=== PATIENT | female | born 1990 | race Caucasian/White ===

== ENCOUNTER 2016-05-04 11:08 | Inpatient (IN) | payer OTHER ==
--- NOTE | ~2016-05-04 | DS ---
Unit #: [id number] #: [id number] Patient: ORI BARNETT [id number] [facility] [address] [place] [address] [id number] I MR#: [id number] NAME: ORI BARNETT. ROOM: P203 Age: 25 Sex: F Admission Date: 05/04/2016 : 1990 Discharge Date: 05/06/2016 Attending Physician: Arslan Saldana M.D. Primary Care Physician: Generic Doctor Not In System DISCHARGE SUMMARY REASON FOR ADMISSION The patient is a 25-year-old white female, admitted to the [address] [place] [address] unit with recurrent abuse of methamphetamine and opioids. HOSPITAL COURSE The patient was admitted to the [facility] and placed on a COWS protocol. She exhibited little in the way of signs or symptoms of withdrawal. On 05/06/2015, the patient requested that this physician "put me back on my Adderall." It was explained to the patient that this would not be a crowder thing to do given her extensive substance abuse history. At this the patient demanded discharge, but having voiced suicidal ideation at the time of admission, she was observed for another 24 hours. On 05/06/2016, the patient was pleasant and cooperative and denied suicidal or homicidal ideation. Discharge was ordered. FINAL DIAGNOSES Methamphetamine use disorder, opioid use disorder, antisocial traits versus disorder. DISPOSITION ON DISCHARGE No psychotropic or other medications were ordered at the time of discharge. FOLLOWUP Followup will take place through the auspices of community mental health resources. PROGNOSIS The patient's prognosis is considered guarded. Dictated by... Arslan Saldana M.D. CB/rito TD: 05/07/2016 01:49 JOB #: [id number] Unit #: [id number] #: [id number] Patient: ORI BARNETT DISCHARGE SUMMARY X Arslan Saldana MD X DISCHARGE SUMMARY
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
--- NOTE | ~2016-05-04 | PN ---
Unit #: [id number] #: [id number] Patient: ORI BARNETT [id number] [facility] [address] [place] [address] [id number] I MR#: [id number] NAME: ORI BARNETT. ROOM: P203 Age: 25 Sex: F Admission Date: 05/04/2016 : 1990 Attending Physician: Arslan Saldana M.D. Admitting Physician: Arslan Saldana M.D. Primary Care Physician: Ana Doctor Not In System [facility] PROGRESS NOTES DATE 05/05/2016 DISCUSSION The patient is complaining of some symptoms of opioid withdrawal. We will go ahead and initiate the opioid detox protocol as the patient does admit now that she was abusing opiates as well as methamphetamine outside the hospital. The patient today requests that this physician restart her Adderall which she states she had taken to the age of 20 before I "started self-medicating." I have calmly explained to the patient that initiation of Adderall in a patient with her extensive substance abuse history is not going to occur at least under the care of this physician. The patient expresses anger related to this and demands discharge, but given her suicidal threats at the time of admission, we will continue to observe and initiate a 72-hour hold if necessary. Dictated by... Arslan Saldana M.D. CB/billie TD: 05/05/2016 14:24 JOB #: [id number] [facility] PROGRESS NOTES X Arslan Saldana MD X PROGRESS NOTE
--- NOTE | ~2016-05-04 | HP ---
Unit #: [id number] #: [id number] Patient: ZOHRA BARNETT [id number] [place] [address] [id number] I MR#: [id number] NAME: ZOHRA BARNETT. ROOM: P203 Age: 25 Sex: F Admission Date: 05/04/2016 : 1990 Attending Physician: Arslan Saldana M.D. Admitting Physician: Arslan Saldana M.D. Primary Care Physician: Generic Doctor Not In System HISTORY AND PHYSICAL HISTORY OF PRESENT ILLNESS Zohra is a 25 year old admitted to [address] [place] [address] because of her continued polysubstance abuse. PAST MEDICAL HISTORY 1. Long history of illicit substance abuse to include IV heroin and crack cocaine. 2. Hepatitis C. 3. Obesity. PAST SURGICAL HISTORY x1. ALLERGIES Penicillin, Ceclor. SOCIAL HISTORY Smokes one pack per day. Denies alcohol. Admits to long history of illicit substance abuse to include IV heroin. FAMILY HISTORY Medically noncontributory. REVIEW OF SYSTEMS CONSTITUTIONAL: No fever or chills. HEENT: Denies any sore throat, ear pain or runny nose. CARDIOVASCULAR: Denies chest pain, irregular heart rhythm or palpitations. CHEST: Denies shortness of breath or cough. No hemoptysis. GASTROINTESTINAL: Denies nausea, vomiting, diarrhea or chronic constipation. ENDOCRINE: Denies history of increased thirst or urination. No recent significant weight loss or gain. GENITOURINARY: Denies dysuria, frequency, or hematuria. SKIN: Denies any rashes. HEMATOLOGIC: Denies history of increased bleeding or bruising. MUSCULOSKELETAL: Denies any hot, swollen joints. No generalized muscle pain. NEUROLOGIC: Denies problems with vision or speech. No frequent, severe headaches. No numbness, tingling or weakness in any extremities. Denies loss of bladder or bowel control. CURRENT MEDICATIONS 1. Milk of magnesia p.r.n. Unit #: [id number] #: [id number] Patient: ZOHRA BARNETT 2. Maalox p.r.n. 3. Tylenol p.r.n. PHYSICAL EXAMINATION GENERAL: Alert, well nourished. No apparent distress. VITAL SIGNS: Blood pressure 130/92, heart rate 96, respirations 16, and temperature 98.6. WEIGHT: 172. HEIGHT: 5 feet 8 inches. SKIN: Warm and dry without rash or lesion. HEENT: Normocephalic. TMs not viewed. Oral and nasal passages clear. Conjunctivae clear. PERRLA. EOMs intact. NECK: Supple without lymphadenopathy or thyromegaly. HEART: Regular rate and rhythm without murmur. LUNGS: Clear. ABDOMEN: Soft, nontender. : Not done. EXTREMITIES: No evidence of cyanosis, clubbing or edema. Moves all without focal deficit. NEUROLOGICAL: Grossly within normal limits. Cranial Nerves: II: Visual dixon are intact. III, IV AND : Extraocular movements are intact. Pupils are equal, round and reactive to light. V: Facial sensation is grossly normal. VII: Facial movements and expression are normal. VIII: Auditory acuity grossly intact. IX, X: Uvula is midline. Phonation is normal. XI: Patient shrugs shoulders and turns head normally. XII: Tongue protrudes in the midline. Sensory and Motor Function: Sensory and motor sensation is grossly normal. Motor: moves all extremities well. Coordination: Gait is normal. Deep Tendon Reflexes: Intact. IMPRESSION Psychiatric admission. RECOMMENDATIONS PSYCHIATRIC: Per psychiatrist. MEDICAL: I see no contraindication to participate in this facility's activities. MEDICAL PROGNOSIS Good. MEDICAL CONDITION Stable. Dictated by... Patricia Marte P.A.-C. for Linden Michele/billie TD: 05/05/2016 11:57 JOB #: [id number] Unit #: [id number] #: [id number] Patient: ZOHRA BARNETT HISTORY AND PHYSICAL X Patricia Marte HISTORY AND PHYSICAL
[2016-05-05 14:48] LABS: AMPHETAMINE POS (NEG); BARBITURATES NEG (NEG); BENZODIAZEPINES NEG (NEG); COCAINE NEG (NEG); MARIJUANA POS (NEG); OPIATES NEG (NEG); TRICYCLIC ANTIDEPRESSANTS NEG (NEG); U METHADONE NEG (NEG)
[2016-05-10 19:32] LABS: HA AB IGM (HEPPAN) Nonreactive (Nonreactive); HB CORE AB IGM (HEPPAN) Nonreactive (Nonreactive); HB S AG (HEPPAN) Nonreactive (Nonreactive); HEP C AB (HEPPAN) Reactive (Nonreactive)
== END 2016-05-06 13:55 | disposition home or self-care (01) | DRG 897 ==
LOC: P2S 11:08
PROVIDERS: Specialist
DX: F15.14 Other stimulant abuse with stimulant-induced mood disorder (principal); F11.10 Opioid abuse, uncomplicated; B19.20 Unspecified viral hepatitis C without hepatic coma; E66.9 Obesity, unspecified; Z88.0 Allergy status to penicillin; F17.210 Nicotine dependence, cigarettes, uncomplicated; Z72.811 Adult antisocial behavior
CPT/HCPCS: 80074; 80307; 84703; 87522; 87806

== ENCOUNTER 2016-08-15 17:09 | Inpatient (IN) | payer OTHER ==
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
--- NOTE | ~2016-08-15 | PN ---
Unit #: [id number] #: [id number] Patient: ORI BARNETT [id number] [facility] [address] [place] [address] [id number] MR#: [id number] NAME: ORI BARNETT. ROOM: P202 Age: 26 Sex: F Admission Date: 08/15/2016 : 1990 Attending Physician: Arslan Saldana M.D. Admitting Physician: Arslan Saldana M.D. Primary Care Physician: Primary Care Physician Diana HEREDIA PROGRESS NOTES DATE 08/17/2016 DISCUSSION Ms. Barnett is a 26-year-old white female who was seen today and chart was reviewed and case was discussed with the staff. She has been anxious, withdrawn and rather seclusive to herself. Meanwhile, she has been cooperative with treatment recommendations as she has been taking the medications and tolerating them fairly well with no reported side effects. MENTAL STATUS EXAMINATION Young white female who was casually dressed with fair personal hygiene, appears to be in no acute distress or discomfort. She was awake and alert on interaction with intact orientation. Her mood was anxious with congruent affect. She denies any suicidal or homicidal ideations. Her insight and judgement remains slightly impaired. TREATMENT PLAN 1. We will continue her on her current treatment protocol. We will monitor her response and make further adjustments as needed. 2. We will continue to follow up. Dictated by... Linden Hunt/tutu TD: 08/21/2016 04:04 JOB #: [id number] Unit #: [id number] #: [id number] Patient: ORI BARNETT LETYASIA PROGRESS NOTES Page 1 of 1 X Harriet Damian MD PROGRESS NOTE
[2016-08-16 09:47] LABS: BASOPHIL% 0.5 % (0-2.5); EOSINOPHIL# 0.3 X10e3 (0-0.7); EOSINOPHIL% 4.3 % (0.0-7.0); HEMATOCRIT 39.2 % (35.0-45.0); HEMOGLOBIN 12.7 gm/dL (12.0-16.0); LYMPHOCYTE% 49.7 % (17.0-45.0); MEAN CELL VOLUME 87.9 FL (83-96); MEAN CORPUSCULAR HEMOGLOBIN 28.6 PG (28-34); MEAN CORPUSCULAR HGB CONC 32.5 g/dL (30-36); MEAN PLATELET VOLUME 9.9 FL (6.5-11.5); MONOCYTE# 0.4 X10e3 (0-1.0); MONOCYTE% 6.8 % (3.0-12.0); NEUTROPHIL# 2.3 X10e3 (1.5-7.1); NEUTROPHIL% 38.7 % (40-75); PLATELET COUNT 192 X10e3 (140-420); RED BLOOD COUNT 4.46 X10e (3.90-5.30); RED CELL DISTRIBUTION WIDTH 14.5 % (11.0-15.5); WHITE BLOOD COUNT 6.1 X10e3 (4.0-10.5)
[2016-08-16 09:50] LABS: DIFF IND NO
[2016-08-16 10:15] LABS: ALBUMIN SERUM 3.4 g/dL (3.5-5.0); BILIRUBIN,TOTAL 0.3 mg/dL (0.2-2.0); BUN/CREATININE RATIO 16.66; CALCIUM SERUM 8.4 mg/dL (8.4-10.2); CREATININE SERUM 0.9 mg/dL (0.6-1.4); GLOM FILT RATE Estimated 88.9 mL/min (>60); POTASSIUM 4.1 mmol/L (3.5-5.1); PROTEIN TOTAL SERUM 6.2 g/dL (6.0-8.3)
[2016-08-18 11:14] LABS: URINE APPEARANCE CLEAR; URINE BILIRUBIN NEG (NEG); URINE BLOOD 1+ (NEG); URINE COLOR YELLOW; URINE GLUCOSE NEG (NEG); URINE KETONE NEG (NEG); URINE LEUKOCYTE ESTERASE NEG (NEG); URINE NITRATE NEG (NEG); URINE PH 6.5 (5-8); URINE PROTEIN NEG (NEG); URINE SPECIFIC GRAVITY 1.023 (1.003-1.035)
[2016-08-18 11:19] LABS: URBCS1 AUWI 0-2 /[HPF] (0-2); URINE BACTERIA AUWI NEG (NEGATIVE); URINE SQUAMOUS EPITHELIAL CELL OCC /[HPF]
[2016-08-18 11:41] LABS: AMPHETAMINE POS (NEG); BARBITURATES NEG (NEG); BENZODIAZEPINES NEG (NEG); COCAINE NEG (NEG); MARIJUANA NEG (NEG); OPIATES NEG (NEG); TRICYCLIC ANTIDEPRESSANTS NEG (NEG); U METHADONE NEG (NEG)
== END 2016-08-18 12:20 | disposition home or self-care (01) | DRG 885 ==
LOC: P2S 17:09
PROVIDERS: Specialist
PROC: HZ2ZZZZ Detoxification Services for Substance Abuse Treatment (ICD-10-PCS; principal; 2016-08-16)
DX: F33.1 Major depressive disorder, recurrent, moderate (principal); F15.20 Other stimulant dependence, uncomplicated; F11.23 Opioid dependence with withdrawal; B19.20 Unspecified viral hepatitis C without hepatic coma; F11.24 Opioid dependence with opioid-induced mood disorder
CPT/HCPCS: 80053; 80307; 81003; 84703; 85025